=== PATIENT | female | born 1985 | race Caucasian/White ===

== ENCOUNTER → 2018-09-21 15:35 | Outpatient (CLI) | payer OTHER, SELFPAY ==
[2018-09-21 19:34] LABS: Progesterone Level 8.66 ng/mL (See Comment)
[2018-09-21 20:52] LABS: hCG Titer Quant., Serum 189 mIU/mL (<9 non-preg)
[2018-09-21 22:02] LABS: Chlamydia Trachomatis by PCR Negative (Negative); Neisserai gonorrhoeae by PCR Negative (Negative); Probe Check PASS; Sample Adequacy Control PASS; Specimen Processing Control PASS
== END ==
PROVIDERS: Visit Provider Obstetrics & Gynecology
DX: Z32.01 Encounter for pregnancy test, result positive (principal); Z11.3 Encounter for screening for infections with a predominantly sexual mode of transmission
CPT/HCPCS: 36415; 84144; 84702; 87491; 87591

== ENCOUNTER → 2018-09-23 16:01 | Outpatient (CLI) | payer OTHER, SELFPAY ==
[2018-09-23 17:47] LABS: hCG Titer Quant., Serum 286 mIU/mL (<9 non-preg)
== END ==
PROVIDERS: Visit Provider Obstetrics & Gynecology
DX: Z32.01 Encounter for pregnancy test, result positive (principal); Z11.3 Encounter for screening for infections with a predominantly sexual mode of transmission
CPT/HCPCS: 36415; 84702

== ENCOUNTER → 2018-09-27 11:08 | Outpatient (CLI) | payer OTHER, SELFPAY ==
[2018-09-27 14:14] LABS: hCG Titer Quant., Serum 431 mIU/mL (<9 non-preg)
== END ==
PROVIDERS: Visit Provider Obstetrics & Gynecology
DX: O20.0 Threatened abortion (principal); Z3A.00 Weeks of gestation of pregnancy not specified
CPT/HCPCS: 36415; 84702

== ENCOUNTER → 2018-09-30 13:06 | Outpatient (CLI) | payer OTHER, SELFPAY ==
[2018-09-30 13:24] LABS: hCG Titer Quant., Serum 464 mIU/mL (<9 non-preg)
== END ==
PROVIDERS: Referring Provider Obstetrics & Gynecology; Visit Provider Obstetrics & Gynecology
DX: O20.0 Threatened abortion (principal); Z3A.00 Weeks of gestation of pregnancy not specified
CPT/HCPCS: 84702

== ENCOUNTER 2018-10-25 14:53 | Day surgery (SDC) | payer OTHER, SELFPAY ==
[2018-10-25] VITALS (10 sets, daily range): BP systolic 103–120; BP diastolic 61–88; PULSE 59–107; RESP 16–18; TEMP 36.2–37.7; O2SAT 98–100; BMI 24.3
--- NOTE | 2018-10-25 12:55 | FAL_PTH ---
PATIENT: SELVIN JARRELL LOC: [facility] [place] [facility] [place] U[place][id number] AGE/SX: 32/F ROOM: RE10/25/[address]: Dr. Heidy Castellon MD : [id number] BED: DIS: 10/25/2018 SPEC #: [id number] RECD: 10/26/18 09:14 STATUS: JOSEPHINE TARIK #: [id number] HUMAIRA: 10/25/18 12:[address]: Heidy Castellon DEPT: SURGICAL PATHOLOGY RECD BY: Rolo Grant ENTERED: 10/26/18 11:11 SP TYPE: ECTOPIC OTHR DR: No Primary Care Phys Tissues: ECTOPIC PREG Procedures: Surgery Specimen Level IV HEADER OPERATION: Laparoscopic removal of ectopic , left salpingectomy PRE-OP DIAGNOSIS: Hemoperitoneum, ectopic without intrauterine TISSUE SUBMITTED: Left fallopian tube with ectopic MICROSCOPIC DIAGNOSIS Left fallopian tube, salpingectomy: Organizing blood clots and rare intraluminal chorionic villi and decidua consistent with intratubular (ectopic). AM:el 10/27/18 COMMENT Case has been reviewed in consultation with Dr. Tamayo who concurs with the above diagnosis. IDC:ROBERTO MICROSCOPIC DESCRIPTION Slides are reviewed. GROSS DESCRIPTION Received in fixative is one container labeled with the patient's name and designated left fallopian tube with ectopic. The specimen consists of a fallopian tube measuring 4.5 cm in length and up to 2 cm in diameter. The fimbrial end is identified. Also present in the container are multiple blood clots measuring in aggregate 6 x 5 x 2.5 cm. Section of fallopian tube reveal it is filled with blood clots. No obvious tissue is identified. Court Usher sections are submitted in four cassettes. / ROBERTO:el 10/26/18 TC:5 CPT: 05415
[2018-10-25 15:48] LABS: Hematocrit 38.1 % (37-47); Hemoglobin 12.5 g/dl (12.0-15.0); Mean Corp Hgb Conc 32.8 g/gl (32-36); Mean Corpuscular Hgb 31.1 pg (27.0-32.0); Mean Corpuscular Volume 94.8 fL (81-99); Mean Platelet Vol. 10.2 fl (6.2-12.0); Platelet Count 198 K/mm3 (150-450); RBC Distribution Width CV 13.4 % (11.6-14.6); RBC Distribution Width SD 44.9 fl (35.1-43.9); Red Blood Count 4.02 M/mm3 (4.2-5.4); White Blood Count 6.3 K/mm3 (4.4-11.0)
[2018-10-25 16:13] LABS: Scan Indicated on CBC? Y/N NO
[2018-10-25 16:18] LABS: AST(SGOT) 13 U/L (15-37); Alanine Aminotransfer ALT/SGPT 18 U/L (13-56); Albumin, Serum 3.7 g/dL (3.2-5.0); Alkaline Phosphatase 59 U/L (45-117); Anion Gap 6 (5-15); BUN 12 mg/dL (7-18); BUN/Creat Ratio 14.2 RATIO (10-20); Calcium,Total 8.6 mg/dL (8.5-10.1); Chloride 107 mmol/L (98-107); Creatinine, Serum 0.85 mg/dL (0.55-1.02); EST Glomerular Filtration Rate 83 mL/min (>60); Est Glom Filt Rate - Afr Amer 100 mL/min (>60); Estimated Creatinine Clearance 79.33 ml/min; Globulin 3.6 g/dL (2.2-4.2); Glucose 81 mg/dL (74-106); Potassium 3.2 mmol/L (3.5-5.1); Protein, Total 7.3 g/dL (6.4-8.2); Sodium Level 141 mmol/L (136-145)
[2018-10-25 16:48] LABS: International Normalized Ratio 1.1; Prothrombin Time (Protime)PT. 13.7 SECONDS (11.7-14.9)
--- NOTE | 2018-10-25 17:17 | PCM.DC ---
You will use the following diet at home:: No restrictions Discharge Activity: May Shower, May Take a Tub Bath Return to work on:: 10/27/18 May resume sexual activity in: 2 weeks Weight Bearing Status: Weight bearing as tolerated Call your doctor if you observe: Fever of 101 or Higher, Using more than one pad per hour, Uncontrolled pain Additional Instructions: You may take Tylenol 500 mg - 1000 mg by mouth every 8 hrs for milder pain. Add OxyIR for more severe pain. You may also take either Ibuprofen 400 mg every 6 hrs or Aleve 220 mg 1 tablet every 6 hrs. Allergies/Adverse Reactions: Allergies Sulfa (Sulfonamide Antibiotics) Allergy (Verified 10/25/18 15:27) Hives ITCHY EYES RUNNY NOSE SEASONAL ALLERGRY Adverse Reaction (Uncoded 10/25/18 15:26) Other Medications to take at Discharge Oxycodone [Oxyir] 5 mg PO Q6H PRN PRN 4 Days #15 tab 10/25/18 The following prescriptions were given: Oxycodone [Oxyir] 5 mg PO Q6H PRN PRN 4 Days #15 tab PRN Reason: Mod-Severe Pain (4-06/29) Primary Care Physician: Care Physician,No Primary [Primary Care Provider] - Test Results: Test results from this visit will be discussed in further detail at your follow-up appointment, if applicable. Please Follow Up With: John Garcia MD - [phone] When: in 1-2 wks for postop incision check Proposed Discharge Date: 10/25/18
[2018-10-25] MEDS: Bupiv/Epi 0.5% Mpf 30 ML Vial (17:35)
--- NOTE | 2018-10-25 17:40 | DCINST_ITS ---
You will use the following diet at home:: No restrictions Discharge Activity: May Shower, May Take a Tub Bath Return to work on:: 10/27/18 May resume sexual activity in: 2 weeks Weight Bearing Status: Weight bearing as tolerated Call your doctor if you observe: Fever of 101 or Higher, Using more than one pad per hour, Uncontrolled pain Additional Instructions: You may take Tylenol 500 mg - 1000 mg by mouth every 8 hrs for milder pain. Add OxyIR for more severe pain. You may also take either Ibuprofen 400 mg every 6 hrs or Aleve 220 mg 1 tablet every 6 hrs. Allergies/Adverse Reactions: Allergies Sulfa (Sulfonamide Antibiotics) Allergy (Verified 10/25/18 15:27) Hives ITCHY EYES RUNNY NOSE SEASONAL ALLERGRY Adverse Reaction (Uncoded 10/25/18 15:26) Other Medications to take at Discharge Oxycodone [Oxyir] 5 mg PO Q6H PRN PRN 4 Days #15 tab 10/25/18 The following prescriptions were given: Oxycodone [Oxyir] 5 mg PO Q6H PRN PRN 4 Days #15 tab PRN Reason: Mod-Severe Pain (4-06/29) Primary Care Physician: Care Physician,No Primary [Primary Care Provider] - Test Results: Test results from this visit will be discussed in further detail at your follow- up appointment, if applicable. Please Follow Up With: John Garcia MD - [phone] When: in 1-2 wks for postop incision check Proposed Discharge Date: 10/25/18
--- NOTE | 2018-10-25 20:26 | OP.PCM_ITS ---
Operative Report Date of Procedure: 10/25/18 PROCEDURE: Laparoscopy, evacuation of hemoperitoneum, Left Salpingectomy PREOPERATIVE DIAGNOSIS: Lower abdominal pain Hemoperitoneum Ectopic , ruptured POSTOPERATIVE diagnosis: Same Ectopic , Left fallopian tube Simple appearing right ovarian cyst Surgeon: Heidy Castellon MD Anesthesia: general anesthesia. Carlos Pittman CRNA Field Inspector: MARGARITA Mills EBL: 50 cc Complications: None Drains: Red Harley catheter used to drain the bladder prior to initiation of the case Fluids: LR replacement Findings; Normal appearing, anteverted uterus. Ovaries are WNL. The right fallopian tube is normal. There is a simple appearing right ovarian cyst noted. There is blood in the pelvis, posterior cul de sac. The left fallopian tube is distended with ectopic , blood/clot. Gross inspection of bowel, omentum. liver edge are WNL. photos were taken of the uterus and ovaries before and after the left salpingectomy Narrative account: After the risks, benefits, alternatives of procedure had been reviewed with the patient, informed consent was obtained. The patient was taken back to the Operating room with an IV running. she was positioned on the operating table in dorsal supine position, where she was given general anesthesia. Once asleep she was repositioned to the dorsal lithotomy position and prepped and draped in the usual sterile fashion with the arms tucked at the sides. A red Harley catheter was used to drain the bladder prior to initiating the case. A single toothed tenaculum and Aneta cannula were placed into the cervix to allow manipulation of the uterus and cervix during the case. Attention was then turned to the anterior abdominal wall where 0.25 % Marcaine with epinephrine was instilled at the suprapubic and infraumbilical skin and at a point midway between in the midline. Skin incisions were then created in the midline at the suprapubic skin and at the infraumbilical skin and midway between the two. While maintaining upward traction of the anterior abdominal wall a Veress needle was inserted through the umbilical incision into the peritoneal cavity. There was free drop of saline, low opening pressure and free flow of CO2 noted. Once the intraabdominal pressure had reached 15 mm of mercury the Veress needle was removed and a bladeless 5 mm trocar was placed through the infraumbilical skin incision into the peritoneal cavity. Correct placement was confirmed using the scope. Under direct visualization then with the patient in Trendelenburg position, a bladeless 5 mm trocar was inserted in through suprapubic skin incision into the peritoneal cavity and at a point midway between the infraumbilical and suprapubic trocars. The pelvis was inspected, with the findings noted as above. The R fallopian tube was normal appearing. there was blood in the pelvis and posterior cul de sac. A suction irrigation device was used to evacuate most of the blood from the pelvis. The uterus was anteverted. The enlarged left fallopian t5ube was grasped and retracted medially. Using a LigaSure device the fallopian tube was excised from the ovary and mesosalpinx. Excellent hemostasis was noted at the excision site. The distended L fallopian tube with ectopic and clot was then placed into an EndoCatch bag placed through a 10-12 bladeless trocar through the suprapubic incision. The bag was brought through the suprapubic skin incision . The specimen was set aside and the pelvis and abdomen were then inspected for hemostasis Further irrigation was completed to evacuate as much as possible of the remaining blood and clot from the peritoneal cavity. Excellent hemostasis was noted by visualization of the pelvis, ovaries, and remaining mesosalpinx. Photos were taken of the uterus , normal appearing right fallopian tube and the bilateral ovaries . At this point the the procedure was terminated. The pneumoperitoneum was reduced and the instruments and trocars were removed from he the anterior abdominal wall skin. The skin incisions were closed with 4-0 Monocryl in a subcuticular fashion. Sterile dressings were applied to the skin. The Single toothed tenaculum and Aneta cannula were removed from the vagina. The patient was returned to dorsal supine position. She was awakened from general anesthesia. She was transferred to the recovery room bed in stable condition after tolerating the procedure well. Sponge, lap, needle and instrument counts were correct x two. Medications given preop and intraoperatively included: Ancef given IV computer console operator to the OR. 10 cc of 1/2 % Marcaine with epinephrine --used as a subcutaneous block and Toradol 30 mg IV x one. For a complete listing of medications given preop and intraop , please see the anesthesia record.
== END 2018-10-25 20:38 | disposition home or self-care (01) ==
LOC: SDC 14:56 → AC 14:57
PROVIDERS: Referring Provider Obstetrics & Gynecology; Visit Provider Obstetrics & Gynecology
PROC: 10T24ZZ Resection of Products of Conception, Ectopic, Percutaneous Endoscopic Approach (ICD-10-PCS; CPT 59150; principal; 2018-10-25 12:40)
DX: O00.102 Left tubal pregnancy without intrauterine pregnancy (principal); K66.1 Hemoperitoneum; Z87.891 Personal history of nicotine dependence; N83.291 Other ovarian cyst, right side
CPT/HCPCS: 59151; 36415; 80053; 85027; 85610; 85730; 86850; 86900; 88305; J7120; J2405

== ENCOUNTER 2020-04-12 15:00 | Outpatient (CLI) | payer OTHER, SELFPAY ==
[2018-10-25 15:37] VITALS: BMI 24.3
== END 2020-04-12 16:00 | disposition home or self-care (01) ==
LOC: WPOUT 15:01 → WP 15:03
PROVIDERS: Referring Provider Obstetrics & Gynecology; Visit Provider Obstetrics & Gynecology
DX: R63.3 Feeding difficulties (principal)
CPT/HCPCS: 96158; 96159

== ENCOUNTER → 2020-06-07 10:36 | Outpatient (CLI) | payer OTHER, SELFPAY ==
[2018-10-25 15:37] VITALS: BMI 24.3
[2020-06-07 12:31] LABS: hCG Titer Quant., Serum < 1 mIU/mL (1-3)
== END ==
PROVIDERS: Visit Provider Obstetrics & Gynecology
DX: N91.2 Amenorrhea, unspecified (principal)
CPT/HCPCS: 36415; 84702

== ENCOUNTER → 2020-11-08 18:00 | Outpatient (CLI) | payer OTHER, SELFPAY ==
[2020-10-24 14:53] VITALS: BMI 26.9
[2020-11-08 18:48] LABS: hCG Titer Quant., Serum 38 mIU/mL (1-3)
== END ==
PROVIDERS: PCP Family Medicine; Visit Provider Obstetrics & Gynecology
DX: Z34.90 Encounter for supervision of normal pregnancy, unspecified, unspecified trimester (principal)
CPT/HCPCS: 36415; 84702

== ENCOUNTER → 2020-11-10 18:09 | Outpatient (CLI) | payer OTHER, SELFPAY ==
[2020-10-24 14:53] VITALS: BMI 26.9
[2020-11-10 19:18] LABS: hCG Titer Quant., Serum 9 mIU/mL (1-3)
== END ==
PROVIDERS: Obstetrics & Gynecology; PCP Family Medicine; Visit Provider Family Medicine
DX: Z34.90 Encounter for supervision of normal pregnancy, unspecified, unspecified trimester (principal)
CPT/HCPCS: 36415; 84702

== ENCOUNTER → 2021-05-02 07:01 | Outpatient (CLI) | payer OTHER, SELFPAY ==
[2021-04-24 16:00] VITALS: BMI 26.4
[2021-05-02 08:39] LABS: Prolactin 26.3 ng/mL; Thyroid Stim Hormone (TSH) 3.53 uIU/mL (0.358-3.74)
[2021-05-09 12:09] LABS: Testosterone, % Free 2.76 % (0.50-2.80); Testosterone, Free 1.05 ng/dL (0.10-0.85); Testosterone, Total 38 ng/dL (8-60)
== END ==
PROVIDERS: Visit Provider Obstetrics & Gynecology
DX: E28.2 Polycystic ovarian syndrome (principal)
CPT/HCPCS: 36415; 82627; 84146; 84402; 84403; 84443; 82626

== ENCOUNTER → 2021-05-05 18:19 | Outpatient (CLI) | payer OTHER, SELFPAY ==
[2021-04-24 16:00] VITALS: BMI 26.4
--- NOTE | 2021-05-05 18:23 | US_ITS ---
STUDY: ULTRASOUND OF THE FEMALE PELVIS - COMPLETE REASON FOR EXAM: Female, 35 years old. PCOS, infertility. LMP: 04/29/2021. TECHNIQUE: Transabdominal and Transvaginal TECHNICAL QUALITY: Adequate. COMPARISON: None. FINDINGS: The uterus is anteverted and is in a midline position. The uterus measures 7.2 cm x 4.1 cm x 3.7 cm. There is a Nabothian cyst of the cervix. The endometrium measures 3.9 mm in thickness, and is hyperechoic. There is no demonstrated endometrial mass. The uterus is of heterogeneous echotexture suggesting fibroid change although no focal fibroid is seen. I.U.D. - The patient does not have an I.U.D. The right ovary is visualized. The right ovary measures 2.8 cm x 2.3 cm x 2.6 cm. Small follicles are seen within the periphery of the ovary. There is no visualized right adnexal mass or complex lesion. There is normal arterial and normal venous vascularity. The left ovary is visualized. The left ovary measures 2.8 cm x 2.9 cm x 2 cm. Small follicles are seen along the peripheral aspect of the ovary. There is a 2 cm x 1.8 cm x 1.5 cm hypoechoic nodular density in the left ovary. This may represent an hemorrhagic cyst. There is no visualized left adnexal mass or complex lesion. There is normal arterial and normal venous vascularity. There is no fluid in the cul-de-sac. The pre void volume of the bladder was 736.7 ml. US/Transvaginal Non- IMPRESSION: Heterogeneous appearance of the uterus. Small follicles are seen in the peripheral aspect of both ovaries. Findings suggestive of a 2 cm x 1.8 cm x 1.5 cm hemorrhagic cyst in the left ovary. Electronically Signed: Faustino Garcia MD at 11:06 EDT , Service support ,
--- NOTE | 2021-05-05 18:23 | US_ITS ---
STUDY: ULTRASOUND OF THE FEMALE PELVIS - COMPLETE REASON FOR EXAM: Female, 35 years old. PCOS, infertility. LMP: 04/29/2021. TECHNIQUE: Transabdominal and Transvaginal TECHNICAL QUALITY: Adequate. COMPARISON: None. FINDINGS: The uterus is anteverted and is in a midline position. The uterus measures 7.2 cm x 4.1 cm x 3.7 cm. There is a Nabothian cyst of the cervix. The endometrium measures 3.9 mm in thickness, and is hyperechoic. There is no demonstrated endometrial mass. The uterus is of heterogeneous echotexture suggesting fibroid change although no focal fibroid is seen. I.U.D. - The patient does not have an I.U.D. The right ovary is visualized. The right ovary measures 2.8 cm x 2.3 cm x 2.6 cm. Small follicles are seen within the periphery of the ovary. There is no visualized right adnexal mass or complex lesion. There is normal arterial and normal venous vascularity. The left ovary is visualized. The left ovary measures 2.8 cm x 2.9 cm x 2 cm. Small follicles are seen along the peripheral aspect of the ovary. There is a 2 cm x 1.8 cm x 1.5 cm hypoechoic nodular density in the left ovary. This may represent an hemorrhagic cyst. There is no visualized left adnexal mass or complex lesion. There is normal arterial and normal venous vascularity. There is no fluid in the cul-de-sac. The pre void volume of the bladder was 736.7 ml. US/Pelvic (Non ) IMPRESSION: Heterogeneous appearance of the uterus. Small follicles are seen in the peripheral aspect of both ovaries. Findings suggestive of a 2 cm x 1.8 cm x 1.5 cm hemorrhagic cyst in the left ovary. Electronically Signed: Faustino Garcia MD at 11:06 EDT , Service support ,
== END ==
PROVIDERS: Referring Provider Obstetrics & Gynecology; Visit Provider Obstetrics & Gynecology
DX: E28.2 Polycystic ovarian syndrome (principal)
CPT/HCPCS: 76830; 76856

== ENCOUNTER → 2021-05-08 09:37 | Outpatient (CLI) | payer OTHER, SELFPAY ==
[2021-04-24 16:00] VITALS: BMI 26.4
--- NOTE | 2021-05-08 10:00 | RAD_ITS ---
STUDY: HYSTEROSALPINGOGRAM. REASON FOR EXAM: Female, 35 years old. INFERTILITY -- 22.53 MGY -- 2 IMAGES FLUOROSCOPY TIME (if supplied): ( 47 seconds ) minutes/seconds TECHNIQUE: A hysterosalpingogram was performed by the nursing unit manager. Imaging was submitted. COMPARISON: None. FINDINGS: The uterus is unremarkable. There is patency of both fallopian tubes. RAD/Salpingogram IMPRESSION: Patency of both fallopian tubes. Electronically Signed: Faustino Garcia MD at 11:03 EDT , Service support ,
--- NOTE | 2021-05-10 21:47 | PCM.OP.BLANK ---
Problems Associated Problem List Diagnoses (1) Infertility due to oligo-ovulation: (2) Polycystic ovary syndrome: Operative Report Date of Procedure: 05/08/21 Preop diagnosis: Infertility Postop diagnosis: Same plus bilateral tubal patency Procedure: Hysterosalpingogram Surgeon: Ashley Pollack Implantable devices: None Complications: None Findings: Bilateral tubal patency and normal uterine cavity Operative details: Patient was taken to the x-ray room and was placed on the x-ray table and was in the dorsal lithotomy position. Speculum was placed in the vagina and the cervix prepped with Betadine and the HSG catheter was easily introduced into the uterus and speculum removed. Radiologist was brought in and while pushing radiopaque dye into the uterus via the HSG catheter the radiologist took multiple images and views and confirmed bilateral tubal patency seen. No gross uterine filling defects or abnormalities were seen. All instruments removed from the vagina and the uterus without complication. Patient tolerated the procedure well.
== END ==
PROVIDERS: Referring Provider Obstetrics & Gynecology; Visit Provider Obstetrics & Gynecology
DX: E28.2 Polycystic ovarian syndrome (principal)
CPT/HCPCS: 58340; 74740; Q9967

== ENCOUNTER → 2021-05-20 17:29 | Outpatient (CLI) | payer OTHER, SELFPAY ==
[2021-05-20 18:31] LABS: Progesterone Level 0.96 ng/mL (See Comment)
== END ==
PROVIDERS: Visit Provider Nurse Practitioner Women's Health
DX: N97.0 Female infertility associated with anovulation (principal)
CPT/HCPCS: 36415; 84144

== ENCOUNTER → 2022-08-18 | Outpatient (CLI) | payer OTHER, SELFPAY ==
--- NOTE | 2022-08-18 07:04 | US_ITS ---
INDICATION: infertility EXAMINATION: Ultrasound US Transvaginal Non-OB TECHNIQUE: Transvaginal (for optimal evaluation of the adnexa) pelvic ultrasound was performed. Grayscale, spectral waveform, and color flow Doppler evaluation of the adnexa. COMPARISON: None. FINDINGS: UTERUS: Anteverted. The uterus measures 7.4 x 3.1 x 4.3 cm. There is no uterine mass. The endometrial stripe measures 2.9 mm in AP diameter which is within normal limits. There is nabothian cyst within the cervix. RIGHT OVARY: The right ovary measures 2.5 x 3.1 x 1.6 cm. Non-enlarged, normal echogenicity. There is normal arterial inflow and venous outflow present in the right ovary. LEFT OVARY: The left ovary measures 2.4 x 1.5 x 2.3 cm. Non-enlarged, normal echogenicity. There is normal arterial inflow and venous outflow present in the left ovary. FREE FLUID: None. US/Transvaginal Non- IMPRESSION: Within normal limits pelvic ultrasound. Electronically Signed: Yessica Shelley MD at 8:01 EST ,
[2022-08-18 08:05] LABS: hCG Titer Quant., Serum < 1 mIU/mL (1-3)
[2022-08-18 08:09] LABS: Estradiol 62.3 pg/mL; Follicle Stimulating Hormone 7.5 mIU/mL; Luteinizing Hormone 5.2 mIU/mL; Thyroid Stim Hormone (TSH) 2.99 uIU/mL (0.358-3.74)
[2022-08-18 08:18] LABS: Progesterone Level 1.03 ng/mL (See Comment)
== END | disposition home or self-care (01) ==
PROVIDERS: Referring Provider Obstetrics & Gynecology; Visit Provider Obstetrics & Gynecology
DX: N97.0 Female infertility associated with anovulation (principal); E28.2 Polycystic ovarian syndrome; Z13.29 Encounter for screening for other suspected endocrine disorder
CPT/HCPCS: 36415; 76830; 82670; 83001; 83002; 84144; 84443; 84702